=== PATIENT | male | born 1960 ===

== ENCOUNTER 2022-04-10 06:20 | Day surgery (SDC) | payer OTHER ==
[~2022-04-10] VITALS: Ht 188 cm; Wt 99.8 kg
[2022-04-10] MEDS ORDERED: Amlodipine Bes2.5 MG PO (06:46)
[2022-04-10] MEDS ORDERED: TADA10TA (06:46)
[2022-04-10] MEDS ORDERED: OMEP20ER PO (06:46)
--- NOTE | 2022-04-10 07:42 | NUR ---
04/10/22 0742 Rolando Rubin CALL LIGHT WITHIN REACH
== END 2022-04-10 09:10 | disposition home or self-care (01) ==
LOC: ORSCSDS 06:20
PROVIDERS: Internal Medicine Gastroenterology
PROC: 0DBP8ZX Excision of Rectum, Via Natural or Artificial Opening Endoscopic, Diagnostic (ICD-10-PCS; principal; 2022-04-10 08:00)
PROC: 0DBL8ZX Excision of Transverse Colon, Via Natural or Artificial Opening Endoscopic, Diagnostic (ICD-10-PCS; principal; 2022-04-10 08:00)
DX: Z12.11 Encounter for screening for malignant neoplasm of colon (principal); D12.3 Benign neoplasm of transverse colon; K62.1 Rectal polyp; Z80.0 Family history of malignant neoplasm of digestive organs; K21.9 Gastro-esophageal reflux disease without esophagitis; I10 Essential (primary) hypertension; G47.33 Obstructive sleep apnea (adult) (pediatric); Z79.899 Other long term (current) drug therapy
CPT/HCPCS: 88305; J2704; J7120

== ENCOUNTER → 2024-03-27 | Outpatient (CLI) | payer SELFPAY ==
[~2024-03-27] MED LIST: AMLODIPINE BESY10 MG PO; Amlodipine Bes2.5 MG PO; CHLO25B PO; OMEP20ER PO; TADA10TA
[2024-03-27 11:42] LABS: Source, Urine Voided
[2024-03-27 13:57] LABS: Appearance, Urine Cloudy (Clear); Bilirubin, Urine Neg (Neg); Blood, Urine 3+ (Neg); Color, Urine Yellow (P-Yellow); Glucose Qualitative, Urine Neg (Neg); Ketones, Urine Neg (Neg); Leukocyte Esterase, Urine 1+ (Neg); Nitrite, Urine Neg (Neg); Protein, Urine 1+ (Neg); Urobilinogen, Urine NORM (Normal)
[2024-03-27 14:19] LABS: White Blood Cells, Urine 25-50 /hpf (0-5)
[2024-03-27 14:21] LABS: Amorphous Light (0-Heavy); Bacteria Many /hpf; Squamous Epithelial Cells Rare /hpf (Few)
== END ==
LOC: LAB SHORT 11:40 → LAB 11:40
PROVIDERS: Nurse Practitioner Family
DX: R31.9 Hematuria, unspecified (principal)
CPT/HCPCS: 81001; 87077; 87086; 87186

== ENCOUNTER → 2024-04-17 | Outpatient (CLI) | payer OTHER | END | disposition home or self-care (01) | LOC: LAB SHORT 17:00 | DX: N39.0 Urinary tract infection, site not specified (principal); R30.0 Dysuria | CPT/HCPCS: 87086 ==